=== PATIENT | male | born 1975 ===

== ENCOUNTER 2024-05-12 13:59 | Inpatient (IN) | payer SELFPAY ==
[~2024-05-12] VITALS: Ht 167.6 cm; Wt 84.3 kg
[2024-05-12 14:28] LABS: BASOPHILS ABSOLUTE AUTO 0.05 K/mm3 (0.00-0.23); BASOPHILS PERCENT AUTO 0 % (0-2); EOSINOPHILS ABSOLUTE AUTO 0.03 K/mm3 (0.00-0.68); EOSINOPHILS PERCENT AUTO 0 % (0-6); Hematocrit 44.3 % (37.0-53.0); Hemoglobin 16.6 g/dL (13.5-17.5); IMMATURE GRAN ABSOLUTE AUTO 0.15 K/mm3 (0.00-0.10); IMMATURE GRAN PERCENT AUTO 1 % (0-1); LYMPHOCYTES ABSOLUTE AUTO 1.19 K/mm3 (0.84-5.20); LYMPHOCYTES PERCENT AUTO 10 % (21-46); MONOCYTES ABSOLUTE AUTO 1.25 K/mm3 (0.16-1.47); MONOCYTES PERCENT AUTO 11 % (4-13); Mean Corpuscular HGB 34.4 pg (26.0-34.0); Mean Corpuscular HGB Conc 37.5 g/dL (31.5-36.5); Mean Corpuscular Volume 92 fL (80-100); Mean Platelet Volume 10.9 fL (9.1-12.4); NEUTROPHILS ABSOLUTE AUTO 9.13 K/mm3 (1.96-9.15); NEUTROPHILS PERCENT AUTO 77 % (41-73); Platelet Count 209 K/mm3 (150-400); RDW Coefficient Variation 14.6 % (11.7-14.2); RDW Standard Deviation 49.2 fL (35.1-46.3); Red Blood Cell Count 4.83 M/mm3 (4.30-5.90)
[2024-05-12 15:42] LABS: Albumin, Blood 3.5 g/dL (3.4-5.0); Albumin/Globulin Ratio 0.7 (0.8-1.8); Bun/Creatinine Ratio 21.1 (12.0-20.0); Calcium, Blood 8.2 mg/dL (8.5-10.1); Creatinine, Blood 0.66 mg/dL (0.60-1.20); Globulin, Blood 4.9 g/dL (2.2-4.0); Potassium, Blood 4.2 mmol/L (3.5-5.5); Total Protein, Blood 8.4 g/dL (6.4-8.2)
[2024-05-12] MEDS ORDERED: Ondansetron HCl 2 MG / ML 2ML Vial IV ONE (15:45)
[2024-05-12] MEDS ORDERED: NS 1,000 ML IV SCH (15:45)
[2024-05-12 16:08] LABS: Base Excess Venous -22.8 mmol/L; PCO2 Venous 23.3 mmHg (38-42); pH Blood Venous 7.09 (7.34-7.37)
[2024-05-12] MEDS ORDERED: Insulin Human Regular 100 UNIT in NS 100 ML IV SCH (16:25)
[2024-05-12] MEDS ORDERED: NS KCl 20mEq 1,000 ML IV ONE (16:30)
[2024-05-12 16:44] LABS: Source, Urine Clean Catch
[2024-05-12 16:48] LABS: Appearance, Urine Clear (Clear); Bilirubin, Urine Neg (Neg); Blood, Urine 4+ (Neg); Color, Urine Yellow (P-Yellow); Glucose Qualitative, Urine 4+ (Neg); Ketones, Urine 4+ (Neg); Leukocyte Esterase, Urine Neg (Neg); Nitrite, Urine Neg (Neg); Protein, Urine 3+ (Neg); Specific Gravity, Urine 1.025 (1.003-1.022); Urobilinogen, Urine NORM (Normal)
[2024-05-12 17:02] LABS: Bacteria Many /hpf; Squamous Epithelial Cells Rare /hpf (Few); White Blood Cells, Urine 0-2 /hpf (0-5)
[2024-05-12 17:03] LABS: Hyaline Casts 0-2 /lpf (0-2); Mucus Light (0-Heavy)
[2024-05-12] MEDS ORDERED: D5W-1/2NS KCl 20mEq 1,000 ML IV SCH (17:10)
[2024-05-12] MEDS ORDERED: D5W-1/2NS 1,000 ML IV SCH ×2 (18:00→18:50)
[2024-05-12 18:25] LABS: Salicylate 2.7 mg/dL (2.8-20.0)
[2024-05-12 18:30] LABS: Acetaminophen, Random <2.0 ug/mL (10.0-30.0)
[2024-05-12 18:37] LABS: Bun/Creatinine Ratio 16.8 (12.0-20.0); Calcium, Blood 6.9 mg/dL (8.5-10.1); Creatinine, Blood 0.6 mg/dL (0.60-1.20); Potassium, Blood 3.9 mmol/L (3.5-5.5)
[2024-05-12 18:38] LABS: U Amphetamine Screen Not Detected; U Barbituate Screen Not Detected; U Benzodiazapine Screen Not Detected; U Buprenorphine Screen Not Detected; U Cannabinoids Screen Not Detected; U Cocaine Screen Not Detected; U Methadone Screen Not Detected; U Methamphetamine Screen Not Detected; U Opiates Screen Not Detected; U Oxycodone Screen Not Detected; U Phencyclidine Screen Not Detected
[2024-05-12] MEDS ORDERED: METF500C PO (18:47)
[2024-05-12 19:00] VITALS: BP 144/98
[2024-05-12 20:00] VITALS: BP 144/97
[2024-05-12 21:00] VITALS: BP 135/92
[2024-05-12 22:00] VITALS: BP 128/79
[2024-05-12 22:33] LABS: Bun/Creatinine Ratio 18.6 (12.0-20.0); Calcium, Blood 7.3 mg/dL (8.5-10.1); Creatinine, Blood 0.64 mg/dL (0.60-1.20)
[2024-05-12] MEDS ORDERED: Potassium Chloride 20 MEQ TabCR PO ONE (22:45)
[2024-05-12] MEDS ORDERED: Lactated Ringer's 1,000 ML IV ONE ×2 (22:45→22:50)
[2024-05-12] MEDS ORDERED: Potassium Chloride 40 MEQ in NS 250 ML IV ONE (22:45)
--- NOTE | 2024-05-12 22:54 | NUR ---
LAB RESULTS CALLED TO [facility], AND NEW ORDERS NOTED. IV FLUIDS CHANGED TO LACTATED RINGERS BOLUS AND INSULIN DRIP STOPPED FOR 90 MINUTES. AWAITING POTASSIUM IV FROM PHARMACY.
[2024-05-12 23:00] VITALS: BP 130/79
[2024-05-13] VITALS (22 sets, daily range): BP systolic 100–130; BP diastolic 64–91
--- NOTE | 2024-05-13 00:38 | NUR ---
IV POTASSIUM INFUSING, PATIENT COMPLAINING ABOUT SEVERE BURNING IN HIS HAND AND ARM. RATE DECREASED TO 25CC/HR AND PATIENT TOLERATING WITH MORE COMFORT.
--- NOTE | 2024-05-13 00:57 | NUR ---
UPDATED DR. BOB ABOUT PATIENT STATUS. CURRENT BLOOD SUGAR, RATE OF IV POSATTIUM, AND VERIFIED RATE FOR FLUID, BEFORE STARTING D51/2NS.
[2024-05-13] MEDS ORDERED: Ondansetron HCl 2 MG / ML 2ML Vial IV PRN (01:00)
[2024-05-13 04:45] LABS: Bun/Creatinine Ratio 23.2 (12.0-20.0); Calcium, Blood 7.5 mg/dL (8.5-10.1); Creatinine, Blood 0.6 mg/dL (0.60-1.20); Potassium, Blood 3.7 mmol/L (3.5-5.5)
[2024-05-13 05:34] LABS: BASOPHILS ABSOLUTE AUTO 0.04 K/mm3 (0.00-0.23); BASOPHILS PERCENT AUTO 1 % (0-2); EOSINOPHILS ABSOLUTE AUTO 0.07 K/mm3 (0.00-0.68); EOSINOPHILS PERCENT AUTO 1 % (0-6); Hematocrit 37.4 % (37.0-53.0); Hemoglobin 13.9 g/dL (13.5-17.5); IMMATURE GRAN ABSOLUTE AUTO 0.04 K/mm3 (0.00-0.10); IMMATURE GRAN PERCENT AUTO 1 % (0-1); LYMPHOCYTES ABSOLUTE AUTO 1.33 K/mm3 (0.84-5.20); LYMPHOCYTES PERCENT AUTO 19 % (21-46); MONOCYTES ABSOLUTE AUTO 1.01 K/mm3 (0.16-1.47); MONOCYTES PERCENT AUTO 14 % (4-13); Mean Corpuscular HGB Conc 37.2 g/dL (31.5-36.5); Mean Corpuscular Volume 89 fL (80-100); Mean Platelet Volume 10.9 fL (9.1-12.4); NEUTROPHILS ABSOLUTE AUTO 4.59 K/mm3 (1.96-9.15); NEUTROPHILS PERCENT AUTO 65 % (41-73); Platelet Count 143 K/mm3 (150-400); RDW Coefficient Variation 14.5 % (11.7-14.2); RDW Standard Deviation 46.3 fL (35.1-46.3); Red Blood Cell Count 4.21 M/mm3 (4.30-5.90); White Blood Cell Count 7.08 K/mm3 (4.00-11.30)
[2024-05-13 06:27] LABS: Bun/Creatinine Ratio 14.7 (12.0-20.0); Calcium, Blood 7.7 mg/dL (8.5-10.1); Creatinine, Blood 0.61 mg/dL (0.60-1.20); Potassium, Blood 2.9 mmol/L (3.5-5.5)
[2024-05-13] MEDS ORDERED: Potassium Chloride 20 MEQ TabCR PO ONE ×2 (06:35→21:15)
[2024-05-13] MEDS ORDERED: Potassium Chloride 40 MEQ in NS 250 ML IV ONE ×2 (07:30→21:15)
[2024-05-13] MEDS ORDERED: Enoxaparin 40 MG/0.4 ML SYR SC SCH (09:00)
[2024-05-13 12:17] LABS: Calcium, Blood 7.7 mg/dL (8.5-10.1); Creatinine, Blood 0.57 mg/dL (0.60-1.20); Potassium, Blood 3.2 mmol/L (3.5-5.5)
[2024-05-13] MEDS ORDERED: Potassium Chloride 40 MEQ in NS 250 ML IV STA (12:42)
[2024-05-13] MEDS ORDERED: Potassium Chl 20MEQ/Water100ML 100 ML IV SCH (17:00)
--- NOTE | 2024-05-13 17:11 | NUR ---
SHIFT SUMMARY PATIENT SLEPT OFF AND ON T/O SHIFT. INSULIN GTT TITRATED UP TO 10 UNITS/HR WITH D5 1/2 NS INF @ 250ML/HR. POTASSIUM REMAINED LOW AT MIDDAY RECHECK. POTASSIUM REPLACEMENTS RUNNING T/O SHIFT WITH RECHECK ORDERED @ 1830. PATIENT FAMILY AT BEDSIDE. PATIENT DENIED NAUSEA T/O. NO OTHER CHANGES THIS SHIFT.
--- NOTE | 2024-05-13 19:00 | NUR ---
ASSUMED CARE OF PATIENT AT 1900. REPORT RECEIVED FROM KELLY Rogers RN. PT SLEEPING. INSULIN INFUSING AT 11 U/HR, D5 1/2 NS INFUSING AT 250 mL/HR, POTASSIUM REPLACEMENT INFUSING. ON RA WITH SATURATION OF 98%. BP STABLE. NO ACUTE NEEDS IDENTIFIED AT THIS TIME. SEE SHIFT ASSESSMENT FOR FURTHER DETAILS.
[2024-05-13 20:54] LABS: Bun/Creatinine Ratio 9.9 (12.0-20.0); Calcium, Blood 7.9 mg/dL (8.5-10.1); Creatinine, Blood 0.51 mg/dL (0.60-1.20); Potassium, Blood 2.9 mmol/L (3.5-5.5)
[2024-05-13] MEDS ORDERED: Insulin Glargine-Yfgn 100 Unit/mL 3 ML SYR SC ONE (21:15)
[2024-05-14] VITALS (18 sets, daily range): BP systolic 104–140; BP diastolic 54–102
[2024-05-14 00:49] LABS: Calcium, Blood 7.9 mg/dL (8.5-10.1); Creatinine, Blood 0.63 mg/dL (0.60-1.20); Potassium, Blood 3.4 mmol/L (3.5-5.5)
[2024-05-14] MEDS ORDERED: D5W-1/2NS KCl 20mEq 1,000 ML IV SCH (01:00)
[2024-05-14] MEDS ORDERED: Potassium Chloride 20 MEQ TabCR PO ONE ×2 (01:05→04:05)
[2024-05-14 03:48] LABS: Bun/Creatinine Ratio 12.5 (12.0-20.0); Calcium, Blood 7.9 mg/dL (8.5-10.1); Creatinine, Blood 0.56 mg/dL (0.60-1.20); Potassium, Blood 3.5 mmol/L (3.5-5.5)
--- NOTE | 2024-05-14 06:21 | NUR ---
SHIFT SUMMARY PT REMAINED ALERT AND ORIENTED X 4 T/O ENTIRETY OF SHIFT. ABLE TO FOLLOW COMMANDS, MAKE PURPOSEFUL MOVEMENTS, AND MAKE NEEDS KNOWN. AFEBRILE AND DENIES PAIN. CONTINOUS CARDIAC MONITORING SHOWS SR WITH HR IN 90'S. BP STABLE WITH MAP > 65. ON ROOM AIR WITH O2 SATURATIONS > 92%. NO BM THIS SHIFT. DENIES N/V. PT TITRATED OFF OF INSULIN AT APPROXIMATELY 2115 AND ATE DINNER ADA DIET WAS ORDERED PER HOSPITALIST. LABS AT APPROXIMATELY 0015 SHOWED GAP HAD REOPENED AND CBG WAS GOING UP. INSULIN RESTARTED AND D5 1/2NS + 20 mEq KcL ORDERED PER HOSPITALIST. NPO ORDERS REINSTATED. UTILIZES BEDSIDE URINE INDEPENDENTLY WITH CLEAR YELLOW URINE OUT. SKIN INTACT. INSULIN INFUSING AT 11 U/HR, D5 1/2 NS + 20 KcL mEq AT 250 mL/HR. WILL CONTINUE TO MONITOR AND REPORT TO ONCOMING RN.
[2024-05-14] MEDS ORDERED: Insulin Human Lispro 100 Units/ML 3ML Syringe SC SCH ×3 (07:30→11:30)
[2024-05-14 08:20] LABS: Bun/Creatinine Ratio 9.4 (12.0-20.0); Calcium, Blood 8.1 mg/dL (8.5-10.1); Creatinine, Blood 0.53 mg/dL (0.60-1.20); Magnesium, Blood 2.1 mg/dL (1.6-2.4); Potassium, Blood 3.7 mmol/L (3.5-5.5)
[2024-05-14] MEDS ORDERED: Insulin NPH 100 Unit / ML 10ML Vial SC ONE (08:50)
[2024-05-14] MEDS ORDERED: Insulin Glargine-Yfgn 100 Unit/mL 3 ML SYR SC SCH ×2 (09:00→21:00)
[2024-05-14] MEDS ORDERED: Lactated Ringer's 1,000 ML IV SCH (09:00)
[2024-05-14] MEDS ORDERED: Insulin NPH 100 Unit / ML 10ML Vial SC STA (09:03)
[2024-05-14 18:16] LABS: Bun/Creatinine Ratio 16.7 (12.0-20.0); Calcium, Blood 7.3 mg/dL (8.5-10.1); Creatinine, Blood 0.6 mg/dL (0.60-1.20); Potassium, Blood 3.5 mmol/L (3.5-5.5)
--- NOTE | 2024-05-14 18:20 | NUR ---
SUMMARY PT A/O X4. TRANSITIONED OFF INSULIN GTT THIS AM. HAS BEEN TOLERATING PO. NO ACUTE CHANGES THIS SHIFT. MONITORING LABS.
[2024-05-14] MEDS ORDERED: Lactated Ringer's 1,000 ML IV ONE (18:40)
--- NOTE | 2024-05-14 19:21 | NUR ---
ASSUMPTION OF CARE/ASSESSMENT: ASSUMED CARE OF PT AT 1900; REPORT RECIEVED FROM PATITO ALEXANDRA. PT IN BED, A&O X 4 AND COOPERATIVE WITH CARE. PT ON RA, SPO2 98<, LUNG CLEAR T/O AND DENIES SOB. SR ON MONITOR WITH HR 90-100'S, SBP 120'S AND DENIES CHEST PAIN/PRESSURE AT THIS TIME. TOLERATING PO INTAKE AT THIS TIME. USES URINAL AT BEDSIDE INDEPENDENTLY. INDEPENDENT WITH ALL ADL'S. LR @ 150 MLS/HR AND RECIEVING 1L LR BOLUS AT THIS TIME. PT DENIES ALL PAIN COMPLAINTS. RAC PIV PATENT AND SALINE LOCKED; LHA PIV PATENT AND INFUSING LR. BED LOWERED, CALL LIGHT IN REACH.
[2024-05-15] VITALS (7 sets, daily range): BP systolic 117–155; BP diastolic 79–100
[2024-05-15] LABS: Potassium, Blood 3.5 mmol/L (3.5-5.5)
[2024-05-15 00:02] LABS: Bun/Creatinine Ratio 24.5 (12.0-20.0); Calcium, Blood 8.2 mg/dL (8.5-10.1); Creatinine, Blood 0.49 mg/dL (0.60-1.20)
[2024-05-15 03:20] LABS: BASOPHILS ABSOLUTE AUTO 0.05 K/mm3 (0.00-0.23); BASOPHILS PERCENT AUTO 1 % (0-2); EOSINOPHILS PERCENT AUTO 2 % (0-6); Hematocrit 36.4 % (37.0-53.0); Hemoglobin 13.6 g/dL (13.5-17.5); IMMATURE GRAN ABSOLUTE AUTO 0.02 K/mm3 (0.00-0.10); IMMATURE GRAN PERCENT AUTO 0 % (0-1); LYMPHOCYTES ABSOLUTE AUTO 1.99 K/mm3 (0.84-5.20); LYMPHOCYTES PERCENT AUTO 39 % (21-46); MONOCYTES ABSOLUTE AUTO 0.73 K/mm3 (0.16-1.47); MONOCYTES PERCENT AUTO 14 % (4-13); Mean Corpuscular HGB 33.3 pg (26.0-34.0); Mean Corpuscular HGB Conc 37.4 g/dL (31.5-36.5); Mean Corpuscular Volume 89 fL (80-100); Mean Platelet Volume 10.4 fL (9.1-12.4); NEUTROPHILS ABSOLUTE AUTO 2.19 K/mm3 (1.96-9.15); NEUTROPHILS PERCENT AUTO 43 % (41-73); Platelet Count 153 K/mm3 (150-400); RDW Coefficient Variation 14.8 % (11.7-14.2); RDW Standard Deviation 48.7 fL (35.1-46.3); Red Blood Cell Count 4.09 M/mm3 (4.30-5.90); White Blood Cell Count 5.08 K/mm3 (4.00-11.30)
[2024-05-15 03:56] LABS: Magnesium, Blood 2.1 mg/dL (1.6-2.4)
[2024-05-15 03:58] LABS: Anion Gap 15 mmol/L (3-11); Blood Urea Nitrogen 11 mg/dL (8-24); Bun/Creatinine Ratio 21.3 (12.0-20.0); CO2, Blood 24 mmol/L (21-32); Calcium, Blood 7.7 mg/dL (8.5-10.1); Chloride, Blood 102 mmol/L (98-108); Cholesterol 275 mg/dL (50-200); Creatinine, Blood 0.52 mg/dL (0.60-1.20); Glomerular Filtration Rate 126 (60-); Glucose, Blood 301 mg/dL (70-99); Potassium, Blood 3.2 mmol/L (3.5-5.5); Sodium, Blood 138 mmol/L (136-145); Triglycerides 1693 mg/dL (30-160)
[2024-05-15] MEDS ORDERED: Insulin Human Lispro 100 Units/ML 3ML Syringe SC SCH (04:00)
[2024-05-15] MEDS ORDERED: Potassium Chloride 20 MEQ TabCR PO ONE ×2 (04:10→11:05)
--- NOTE | 2024-05-15 05:42 | NUR ---
SHIFT SUMMARY: NO ACUTE CHANGES OVERNIGHT; VSS THROUGHOUT THE SHIFT. PT REMAINS INDEPENDENT WITH ADL'S. 1.5 L URINE OUTPUT THIS SHIFT. CBG/INSULIN CHANGED TO Q4H. BLOOD SUGARS REMAIN IN 270-300'S. BED LOWERED, CALL LIGHT IN REACH.
[2024-05-15] MEDS ORDERED: Calcium Chloride 10% 2,000 MG in NS 100 ML IV ONE (07:40)
[2024-05-15] MEDS ORDERED: Lactated Ringer's 1,000 ML IV SCH (08:00)
[2024-05-15] MEDS ORDERED: Atorvastatin 40 MG Tab PO SCH (09:00)
[2024-05-15] MEDS ORDERED: Insulin NPH 100 Unit / ML 10ML Vial SC SCH (09:00)
[2024-05-15] MEDS ORDERED: Fenofibrate 67 MG Cap PO SCH (09:00)
[2024-05-15 10:53] LABS: Bun/Creatinine Ratio 15.6 (12.0-20.0); Creatinine, Blood 0.51 mg/dL (0.60-1.20); Potassium, Blood 3.4 mmol/L (3.5-5.5)
[2024-05-15 10:54] LABS: Calcium, Blood 9.8 mg/dL (8.5-10.1)
[2024-05-15] MEDS ORDERED: ATOR80 PO (11:14)
[2024-05-15] MEDS ORDERED: FENO67 PO (11:15)
[2024-05-15] MEDS ORDERED: FISH OIL 1,0001 EA10 PO (11:18)
[2024-05-15] MEDS ORDERED: INSULANI SC (11:18)
--- NOTE | 2024-05-15 13:02 | NUR ---
Pt discharged at 1230. Pt verbalized understanding of all discharge instructions. PIV taken out. All personal belongings sent home with patient. Pt ambulated independently out of unit.
== END 2024-05-15 12:25 | disposition home or self-care (01) | DRG 638 ==
LOC: ER 13:59 → ICUE 17:47
PROVIDERS: Family Medicine; Family Medicine Adult Medicine; Internal Medicine; Nurse Practitioner Acute Care; Physician Assistant; Student in an Organized Health Care Education/Training Program; ADMIT Internal Medicine
DX: E10.10 Type 1 diabetes mellitus with ketoacidosis without coma (principal); E87.1 Hypo-osmolality and hyponatremia; E87.6 Hypokalemia; E10.649 Type 1 diabetes mellitus with hypoglycemia without coma; E86.1 Hypovolemia; Z87.891 Personal history of nicotine dependence; Z91.148 Patient's other noncompliance with medication regimen for other reason
CPT/HCPCS: 36415; 71046; 80048; 80053; 81001; 82010; 82330; 82465; 82803; 82947; 83036; 83690; 83735; 84443; 84478; 84484; 85025; 87086; 93005; 93010; 96361; 96374; 96375; 99285-25; A9270; G0480; J1650; J1815; J2405; J3480; J7030; J7042; J7050; J7120